=== PATIENT | female | born 1950 | race Caucasian/White ===

== ENCOUNTER 2016-08-01 19:09 | Observation (INO) ==
[2016-08-01] MEDS ORDERED: Ondansetron 4 MG/2 ML VIAL IVP PRN (22:15)
[2016-08-01] MEDS ORDERED: *HR* Morphine 2 MG/ML SYRINGE IVP PRN (22:22)
[2016-08-01] MEDS: 0.9 % Sodium Chloride 1,000 ML IVC SCH (22:59)
[2016-08-01] MEDS: Pantoprazole 40 MG VIAL IVP SCH (22:59)
[2016-08-01] MEDS: MetroNIDAZOLE 500 MG/100 ML 500 MG/100 ML BAG IVPB SCH (23:00)
[2016-08-02 05:13] LABS: Basophils # 0.1 K/mcL (0.0-0.2); Basophils % 0.8 %; Eosinophils # 0.2 K/mcL (0.0-0.6); Eosinophils % 2.4 %; Hematocrit 36.2 % (35.3-44.9); Hemoglobin 12.1 g/dL (11.5-15.4); Immature Granulocytes % 0.2 % (0-4); Lymphocytes # 1.1 K/mcL (0.6-4.6); Lymphocytes % 17.7 %; Mean Corpuscular HGB Conc 33.4 g/dL (31.6-35.5); Mean Corpuscular Hemoglobin 28.8 pg (28.0-33.3); Mean Corpuscular Volume 86.2 fL (83.0-100.0); Mean Platelet Volume 10.2 fL (9.4-12.4); Monocytes # 0.8 K/mcL (0.0-1.3); Monocytes % 13.2 %; Neutrophils # 4.1 K/mcL (1.6-8.9); Platelet Count 230 K/mcL (140-400); Red Cell Distribution Width 13.2 % (11.5-14.5); Segmented Neutrophils % 65.7 %
[2016-08-02 05:24] LABS: Magnesium 1.8 mg/dL (1.6-2.6); Phosphorous 3.4 mg/dL (2.3-4.7)
[2016-08-02 05:25] LABS: BUN/Creatinine Ratio 9 (6-26); Blood Urea Nitrogen 6 mg/dL (7-20); Calcium 8.8 mg/dL (8.6-10.8); Carbon Dioxide 26 mEq/L (19-29); Chloride 107 mEq/L (98-109); Glucose 93 mg/dL (70-99); Osmolality,Calculated 287 (280-300); Potassium 3.8 mEq/L (3.5-4.5); Sodium 140 mEq/L (136-145); eGFR For African Americans > 60 (> 60); eGFR For Non-African Americans > 60 (> 60)
[2016-08-02] MEDS: 0.9 % Sodium Chloride 1,000 ML IVC SCH ×2 (08:50→21:06)
[2016-08-02] MEDS: MetroNIDAZOLE 500 MG/100 ML 500 MG/100 ML BAG IVPB SCH ×2 (08:50→15:58)
[2016-08-02] MEDS: Pantoprazole 40 MG VIAL IVP SCH (08:51)
[2016-08-02] MEDS ORDERED: *HR* Promethazine 25 MG/ML VIAL IVP PRN (13:09)
[2016-08-02] MEDS ORDERED: Naloxone 0.4 MG/ML INJ IVP PRN (13:09)
[2016-08-02] MEDS ORDERED: *HR* Metoprolol 5 MG/5 ML VIAL IVP PRN (13:09)
[2016-08-02] MEDS ORDERED: Ondansetron 4 MG/2 ML VIAL IVP PRN (13:09)
[2016-08-02] MEDS: Ibuprofen 400 MG TABLET PO PRN ×2 (13:29→19:30)
[2016-08-02] MEDS: ALPRAZolam 0.25 MG TABLET PO PRN ×2 (13:30→19:31)
--- NOTE | 2016-08-02 14:45 | General Surg History&Physical ---
<Bell Keane - Last Filed: 08/02/16 15:12> Date of Encounter: 08/02/16 Time of Encounter: 14:27 Assessment and Plan (1) Diverticulitis Current Visit: No Status: Acute The assessment and plan as outlined above was discussed with the patient and/or family members who expressed understanding and agreement. All questions were answered. NPO except medications IVF IV cipro and flagyl pain control supportive care plan for f/u CT to monitor abscess Qualifiers: Diverticulitis site: large intestine Diverticulitis bleeding: without bleeding Diverticulitis complication: with abscess Qualified Code(s): K57.20 - Diverticulitis of large intestine with perforation and abscess without bleeding (2) DVT prophylaxis Current Visit: Yes Status: Acute heparin SQ 5,000 units BID History of Present Illness Chief complaint: diverticulitis HPI: Ms. Yang is a 65 year old female transferred from [place] [facility] for diverticulitis. She went to the ER for LLQ abdominal pain. The pain was a cramping pain that was made worse with eating and bowel movements. Denies fevers , chills, dysuria, urgency, emesis. Admits to nausea. Colonoscopy 1 yr prior showed diverticulosis. CT shows severe acute diverticulitis of the sigmoid colon with extensive wall thickening and pericolonic inflammatory changes. Focal fluid collection in the wall of the sigmoid colon [id number] mm in size likely representing an intramural abscess of the sigmoid colon. Past Med Surg Social Fam HX - Past Medical History Medical history: cancer, COPD, hyperlipidemia, migraine Psychiatric history: anxiety - Past Surgical History Surgical History: cancer surgery, other - Social History Smoking Status: Former smoker Smokeless Tobacco Status: No Alcohol use: none Drug use: none Occupational status: employed Activity Level: Independent ambulation - Family History Brother Hx Family Endocrine Disorder: (dm) Medications and Allergies Alprazolam [Xanax 0.25 MG Tablet] 0.25 mg PO TID PRN 08/01/16 [History] Aspirin [Lo-Dose Aspirin EC] 81 mg PO DAILY 08/01/16 [History] Montelukast [Singulair] 10 mg PO HS 08/01/16 [History] Simvastatin [Zocor] 20 mg PO HS 08/01/16 [History] Allergies Sulfa (Sulfonamide Antibiotics) Allergy (Verified 06/01/15 08:03) Anaphylaxis codeine Adverse Reaction (Verified 06/01/15 08:03) Nausea Review of Systems All systems PM: A 10-system review of systems was performed and is negative for pertinent findings except as documented above in the HPI. - Constitutional headache(s), no chills, no fever(s) - Cardiovascular no chest pain - Respiratory no dyspnea - Gastrointestinal abdominal pain, cramping, diarrhea, no constipation, no vomiting - Genitourinary Genitourinary: no dysuria, no urinary frequency, no urinary hesitancy, no urinary urgency - Musculoskeletal no arthralgias, no myalgias - Integumentary no rash General Surgery Exam Initial Vital Signs Temp Pulse Resp BP Pulse Ox 98.0 F 71 18 134/78 96 08/01/16 21:30 08/01/16 21:30 08/01/16 21:30 08/01/16 21:30 08/01/16 21:30 - General physical appearance well developed, well nourished, no distress - Eyes normal ocular movement - ENT normal mucosa, atraumatic, normocephalic - Neck trachea midline - Respiratory normal respiratory effort, clear to auscultation - Cardiovascular Cardiovascular exam: Present: RRR - Abdomen Abdomen general surgery: Present: bowel sounds present, soft Abdominal Tenderness: Present: LLQ (mild) - Integumentary Integumentary general surgery: Present: warm and dry - Neurologic Present: CN 2-12 grossly intact - Psychiatric Psychiatric general surgery: Present: A&Ox3, speech is normal, memory intact Results - Labs 08/02/16 04:03 08/02/16 04:03 Abnormal lab results BUN 6 mg/dL (7-20) L 08/02/16 04:03 POC Glucose 101 (58-89) H 08/02/16 12:05 Diabetes panel 08/02/16 Range/Units 04:03 Sodium 140 (136-145) mEq/L Potassium 3.8 (3.5-4.5) mEq/L Chloride 107 (98-109) mEq/L Carbon Dioxide 26 (19-29) mEq/L BUN 6 L (7-20) mg/dL Creatinine 0.66 (0.57-1.11) mg/dL Glucose 93 (70-99) mg/dL Calcium 8.8 (8.6-10.8) mg/dL Calcium panel 08/02/16 08/02/16 Range/Units 04:03 04:03 Calcium 8.8 (8.6-10.8) mg/dL Phosphorus 3.4 (2.3-4.7) mg/dL Pituitary panel 08/02/16 Range/Units 04:03 Sodium 140 (136-145) mEq/L Potassium 3.8 (3.5-4.5) mEq/L Chloride 107 (98-109) mEq/L Carbon Dioxide 26 (19-29) mEq/L BUN 6 L (7-20) mg/dL Creatinine 0.66 (0.57-1.11) mg/dL Glucose 93 (70-99) mg/dL Calcium 8.8 (8.6-10.8) mg/dL Adrenal panel 08/02/16 Range/Units 04:03 Sodium 140 (136-145) mEq/L Potassium 3.8 (3.5-4.5) mEq/L Chloride 107 (98-109) mEq/L Carbon Dioxide 26 (19-29) mEq/L BUN 6 L (7-20) mg/dL Creatinine 0.66 (0.57-1.11) mg/dL Glucose 93 (70-99) mg/dL Calcium 8.8 (8.6-10.8) mg/dL All other labs normal. <Brittani Allen - Last Filed: 08/03/16 13:26> Date of Encounter: 08/02/16 Time of Encounter: 16:00 Assessment and Plan (1) DVT prophylaxis Current Visit: Yes Status: Acute The assessment and plan as outlined above was discussed with the patient and/or family members who expressed understanding and agreement. All questions were answered. (2) Diverticulitis Current Visit: No Status: Acute The assessment and plan as outlined above was discussed with the patient and/or family members who expressed understanding and agreement. All questions were answered. conservative therapy: npo, serial abdominal exams, prn pain control, IV abx follow labs Qualifiers: Diverticulitis site: large intestine Diverticulitis bleeding: without bleeding Diverticulitis complication: with abscess Qualified Code(s): K57.20 - Diverticulitis of large intestine with perforation and abscess without bleeding (3) Hyperlipidemia Current Visit: Yes Status: Acute The assessment and plan as outlined above was discussed with the patient and/or family members who expressed understanding and agreement. All questions were answered. ok to continue home meds Qualifiers: Hyperlipidemia type: unspecified Qualified Code(s): E78.5 - Hyperlipidemia , unspecified History of Present Illness HPI: Ms. Yang is a 65 year old female who has had about 5 epiisodes over the last 8 months of LLQ pain. She has never been treated for diverticulitis previously as inpatient or outpatient. She episodes of pain are increasing in frequency. THis saturday she began having sharp LLQ pain without radiation that over then next few days became "excruciating". She presented to [facility] and a CT scan showed severe sigmoid diverticulitis with an intramural abscess. Her last colonosocpy was within the last year and showed diverticulosis. She is still having flatus and had a bm yesterday. No melena or hematochezia. No dysuria Past Med Surg Social Fam HX - Past Medical History Source: patient Review of Systems All systems PM: reviewed and no additional remarkable complaints except as stated All systems PM: A 10-system review of systems was performed and is negative for pertinent findings except as documented above in the HPI. General Surgery Exam Initial Vital Signs Temp Pulse Resp BP Pulse Ox 98.0 F 71 18 134/78 96 08/01/16 21:30 08/01/16 21:30 08/01/16 21:30 08/01/16 21:30 08/01/16 21:30 - General physical appearance well developed, well nourished, no distress, moderate pain - Eyes PERRL, normal ocular movement - ENT normal mucosa, atraumatic, normocephalic - Neck trachea midline - Respiratory normal expansion, clear to auscultation - Cardiovascular Cardiovascular exam: Present: RRR, no murmurs/rubs/gallops - Abdomen Abdomen general surgery: Present: bowel sounds present, soft, tender. Absent: distended, guarding, rebound Abdominal Tenderness: Present: LLQ - Integumentary Integumentary general surgery: Present: warm and dry, no abnormal pigmentation - Neurologic Present: CN 2-12 grossly intact - Musculoskeletal Present: normal posture - Psychiatric Psychiatric general surgery: Present: A&Ox3, speech is normal Results - Labs 08/03/16 04:14 08/03/16 04:14 Abnormal lab results BUN 6 mg/dL (7-20) L 08/02/16 04:03 POC Glucose 101 (58-89) H 08/02/16 12:05 Diabetes panel 08/02/16 Range/Units 04:03 Sodium 140 (136-145) mEq/L Potassium 3.8 (3.5-4.5) mEq/L Chloride 107 (98-109) mEq/L Carbon Dioxide 26 (19-29) mEq/L BUN 6 L (7-20) mg/dL Creatinine 0.66 (0.57-1.11) mg/dL Glucose 93 (70-99) mg/dL Calcium 8.8 (8.6-10.8) mg/dL Calcium panel 08/02/16 08/02/16 Range/Units 04:03 04:03 Calcium 8.8 (8.6-10.8) mg/dL Phosphorus 3.4 (2.3-4.7) mg/dL Pituitary panel 08/02/16 Range/Units 04:03 Sodium 140 (136-145) mEq/L Potassium 3.8 (3.5-4.5) mEq/L Chloride 107 (98-109) mEq/L Carbon Dioxide 26 (19-29) mEq/L BUN 6 L (7-20) mg/dL Creatinine 0.66 (0.57-1.11) mg/dL Glucose 93 (70-99) mg/dL Calcium 8.8 (8.6-10.8) mg/dL Adrenal panel 08/02/16 Range/Units 04:03 Sodium 140 (136-145) mEq/L Potassium 3.8 (3.5-4.5) mEq/L Chloride 107 (98-109) mEq/L Carbon Dioxide 26 (19-29) mEq/L BUN 6 L (7-20) mg/dL Creatinine 0.66 (0.57-1.11) mg/dL Glucose 93 (70-99) mg/dL Calcium 8.8 (8.6-10.8) mg/dL All other labs normal. - Imaging CT scan - abdomen: report reviewed, image reviewed CT scan - pelvis: report reviewed, image reviewed - Attending Attestation I examined this patient and my medical decision-making was reviewed with the HIGH SCHOOL ACADEMIC COACH/PA/Advanced Practice Nurse/Resident Physician. I agree with the documented findings, disposition and treatment plan as described except to the extent set forth below.
[2016-08-02] MEDS ORDERED: *HR* Heparin 5,000 UNIT/ML VIAL ONE (15:53)
[2016-08-02] MEDS: *HR* Heparin 5,000 UNIT/ML VIAL SQ SCH (16:00)
[2016-08-03 05:16] LABS: Basophils % 0.8 %; Eosinophils # 0.3 K/mcL (0.0-0.6); Eosinophils % 5.3 %; Hematocrit 35.8 % (35.3-44.9); Hemoglobin 11.5 g/dL (11.5-15.4); Immature Granulocytes % 0.2 % (0-4); Lymphocytes # 1.1 K/mcL (0.6-4.6); Lymphocytes % 21.8 %; Mean Corpuscular HGB Conc 32.1 g/dL (31.6-35.5); Mean Corpuscular Hemoglobin 28.5 pg (28.0-33.3); Mean Corpuscular Volume 88.8 fL (83.0-100.0); Mean Platelet Volume 10.2 fL (9.4-12.4); Monocytes # 0.6 K/mcL (0.0-1.3); Monocytes % 12.2 %; Platelet Count 223 K/mcL (140-400); Red Blood Count 4.03 M/mcL (3.82-4.97); Red Cell Distribution Width 13.2 % (11.5-14.5); Segmented Neutrophils % 59.7 %
[2016-08-03] MEDS: 0.9 % Sodium Chloride 1,000 ML IVC SCH ×2 (05:23→16:20)
[2016-08-03] MEDS: *HR* Heparin 5,000 UNIT/ML VIAL SQ SCH ×2 (05:27→17:52)
[2016-08-03 05:45] LABS: BUN/Creatinine Ratio 10 (6-26); Blood Urea Nitrogen 7 mg/dL (7-20); Calcium 8.4 mg/dL (8.6-10.8); Carbon Dioxide 24 mEq/L (19-29); Chloride 110 mEq/L (98-109); Glucose 91 mg/dL (70-99); Magnesium 2.1 mg/dL (1.6-2.6); Osmolality,Calculated 288 (280-300); Phosphorous 3.1 mg/dL (2.3-4.7); Potassium 4.3 mEq/L (3.5-4.5); Sodium 140 mEq/L (136-145); eGFR For African Americans > 60 (> 60); eGFR For Non-African Americans > 60 (> 60)
[2016-08-03] MEDS: Pantoprazole 40 MG VIAL IVP SCH (09:29)
[2016-08-03] MEDS: ALPRAZolam 0.25 MG TABLET PO PRN (11:08)
--- NOTE | 2016-08-03 15:19 | General Surgery Progress Note ---
<Rashida Rose Dave - Last Filed: 08/03/16 15:16> Date of Encounter: 08/03/16 Time of Encounter: 12:00 - Assessment and Plan (1) Diverticulitis Current Visit: No Status: Acute Patient symptoms have improved with conservative therapy. Advance to low residue diet [employer] consult for low residue diet IV antibiotics- transition to PO cipro and flagyl likely in the next 24 hours Supportive care saline lock IV fluid Qualifiers: Diverticulitis site: large intestine Diverticulitis bleeding: without bleeding Diverticulitis complication: with abscess Qualified Code(s): K57.20 - Diverticulitis of large intestine with perforation and abscess without bleeding (2) DVT prophylaxis Current Visit: Yes Status: Acute Continue heparin 5,000 units SQ twice daily for DVT prophylaxis Subjective Patient reports: no new complaints, feels better, still having pain, pain is less, tolerating liquids well, voiding w/o difficulty, flatus, afebrile Objective Vital Signs - Last 8 Hours Temp Pulse Resp BP Pulse Ox 08/03/16 11:20 98.0 F 71 17 160/87 97 08/03/16 08:00 98.3 F 61 17 115/74 97 Intake and Output 08/02/16 08/03/16 08/03/16 23:59 07:59 15:59 Intake Total 1300 / 1300 1200 / 1200 1240 / 1240 Output Total 900 / 900 450 / 450 1200 / 1200 Balance 400 / 400 750 / 750 40 / 40 Intake: IV Fluids 1300 / 1300 1200 / 1200 0.9 % Sodium Chloride 1, 1000 / 1000 1000 / 1000 000 ML @ 120 mls/hr IVC . Q8H20M [facility] Rx#:[id number] Cipro 400 MG/200 ML 400 200 / 200 200 / 200 mg In 200 ml @ 200 mls/hr IVPB Q12HR [facility] Rx#: [id number] Flagyl 500 MG/100 ML 500 100 / 100 mg In 100 ml @ 100 mls/hr IVPB Q8HR [facility] Rx#: [id number] Oral 0 / 0 0 / 0 1240 / 1240 Output: Urine 900 / 900 450 / 450 1200 / 1200 Other: Weight 67.6 kg Patient Weight 08/03/16 23:59 Weight 67.6 kg - General physical appearance well developed, well nourished, no distress - Eyes normal ocular movement - ENT normal mucosa, atraumatic, normocephalic - Neck Neck exam: trachea midline - Respiratory normal respiratory effort, clear to auscultation - Cardiovascular Cardiovascular exam: Present: RRR - Abdomen Abdomen: Present: bowel sounds present, soft, tender (mild, significantly improved) - Integumentary no rash, no growths, no abnormal pigmentation - Neurologic CN 2-12 grossly intact - Musculoskeletal normal gait, normal posture - Psychiatric oriented to time, oriented to person, oriented to place, speech is normal, memory intact - Labs 08/03/16 04:14 08/03/16 04:14 Diabetes panel 08/03/16 Range/Units 04:14 Sodium 140 (136-145) mEq/L Potassium 4.3 (3.5-4.5) mEq/L Chloride 110 H (98-109) mEq/L Carbon Dioxide 24 (19-29) mEq/L BUN 7 (7-20) mg/dL Creatinine 0.67 (0.57-1.11) mg/dL Glucose 91 (70-99) mg/dL Calcium 8.4 L (8.6-10.8) mg/dL Calcium panel 08/03/16 Range/Units 04:14 Calcium 8.4 L (8.6-10.8) mg/dL Phosphorus 3.1 (2.3-4.7) mg/dL Pituitary panel 08/03/16 Range/Units 04:14 Sodium 140 (136-145) mEq/L Potassium 4.3 (3.5-4.5) mEq/L Chloride 110 H (98-109) mEq/L Carbon Dioxide 24 (19-29) mEq/L BUN 7 (7-20) mg/dL Creatinine 0.67 (0.57-1.11) mg/dL Glucose 91 (70-99) mg/dL Calcium 8.4 L (8.6-10.8) mg/dL Adrenal panel 08/03/16 Range/Units 04:14 Sodium 140 (136-145) mEq/L Potassium 4.3 (3.5-4.5) mEq/L Chloride 110 H (98-109) mEq/L Carbon Dioxide 24 (19-29) mEq/L BUN 7 (7-20) mg/dL Creatinine 0.67 (0.57-1.11) mg/dL Glucose 91 (70-99) mg/dL Calcium 8.4 L (8.6-10.8) mg/dL Consult Discharge Plan - Plan Referrals: Rhonda Soliman MD [Primary Care Provider] - 08/09/16 4:15 pm Brittani Allen MD [Partnered Physician] - 08/15/16 1:40 pm (hospital f/u) Prescriptions: Ciprofloxacin [Cipro] 500 mg PO BID #20 tablet MetroNIDAZOLE [Flagyl] 500 mg PO TID #30 tablet - Attending Attestation I examined this patient and my medical decision-making was reviewed with the PHYSICAL THER/PA/Advanced Practice Nurse/Resident Physician. I agree with the documented findings, disposition and treatment plan as described except to the extent set forth below. <Brittani Allen - Last Filed: 08/03/16 18:14> Date of Encounter: 08/03/16 - Assessment and Plan (1) DVT prophylaxis Current Visit: Yes Status: Acute (2) Diverticulitis Current Visit: No Status: Acute will plan followup ct in 1 week to ensure intramural abscess resolved Qualifiers: Diverticulitis site: large intestine Diverticulitis bleeding: without bleeding Diverticulitis complication: with abscess Qualified Code(s): K57.20 - Diverticulitis of large intestine with perforation and abscess without bleeding (3) Hyperlipidemia Current Visit: Yes Status: Acute Qualifiers: Hyperlipidemia type: unspecified Qualified Code(s): E78.5 - Hyperlipidemia , unspecified Subjective Patient reports: feels better, pain is less, tolerating liquids well, voiding w/ o difficulty, flatus Objective Vital Signs - Last 8 Hours Temp Pulse Resp BP Pulse Ox 08/03/16 15:13 98.1 F 73 16 143/84 97 08/03/16 11:20 98.0 F 71 17 160/87 97 Intake and Output 08/03/16 08/03/16 08/03/16 07:59 15:59 23:59 Intake Total 1200 / 1200 2240 / 2240 Output Total 450 / 450 1900 / 1900 Balance 750 / 750 340 / 340 Intake: IV Fluids 1200 / 1200 1000 / 1000 0.9 % Sodium Chloride 1, 1000 / 1000 1000 / 1000 000 ML @ 120 mls/hr IVC . Q8H20M [facility] Rx#:[id number] Cipro 400 MG/200 ML 400 200 / 200 mg In 200 ml @ 200 mls/hr IVPB Q12HR [facility] Rx#: [id number] Oral 0 / 0 1240 / 1240 Output: Urine 450 / 450 1900 / 1900 Other: Weight 67.6 kg Patient Weight 08/03/16 23:59 Weight 67.6 kg - General physical appearance well developed, well nourished, no pain - Eyes PERRL, normal ocular movement - ENT atraumatic, normocephalic - Neck Neck exam: trachea midline - Respiratory clear to auscultation - Cardiovascular Cardiovascular exam: Present: RRR - Abdomen Abdomen: Present: bowel sounds present, soft, tender - Integumentary no rash, no growths - Musculoskeletal normal gait, normal posture - Psychiatric oriented to time, oriented to person, memory intact - Labs 08/03/16 04:14 08/03/16 04:14 Diabetes panel 08/03/16 Range/Units 04:14 Sodium 140 (136-145) mEq/L Potassium 4.3 (3.5-4.5) mEq/L Chloride 110 H (98-109) mEq/L Carbon Dioxide 24 (19-29) mEq/L BUN 7 (7-20) mg/dL Creatinine 0.67 (0.57-1.11) mg/dL Glucose 91 (70-99) mg/dL Calcium 8.4 L (8.6-10.8) mg/dL Calcium panel 08/03/16 Range/Units 04:14 Calcium 8.4 L (8.6-10.8) mg/dL Phosphorus 3.1 (2.3-4.7) mg/dL Pituitary panel 08/03/16 Range/Units 04:14 Sodium 140 (136-145) mEq/L Potassium 4.3 (3.5-4.5) mEq/L Chloride 110 H (98-109) mEq/L Carbon Dioxide 24 (19-29) mEq/L BUN 7 (7-20) mg/dL Creatinine 0.67 (0.57-1.11) mg/dL Glucose 91 (70-99) mg/dL Calcium 8.4 L (8.6-10.8) mg/dL Adrenal panel 08/03/16 Range/Units 04:14 Sodium 140 (136-145) mEq/L Potassium 4.3 (3.5-4.5) mEq/L Chloride 110 H (98-109) mEq/L Carbon Dioxide 24 (19-29) mEq/L BUN 7 (7-20) mg/dL Creatinine 0.67 (0.57-1.11) mg/dL Glucose 91 (70-99) mg/dL Calcium 8.4 L (8.6-10.8) mg/dL
--- NOTE | 2016-08-03 15:23 | Discharge Summary ---
<Rashida Rose - Last Filed: 08/03/16 15:20> Date of Encounter: 08/03/16 Time of Encounter: 15:20 - Discharge Diagnosis (1) Diverticulitis Priority: Primary Status: Acute Qualifiers: Diverticulitis site: large intestine Diverticulitis bleeding: without bleeding Diverticulitis complication: with abscess Qualified Code(s): K57.20 - Diverticulitis of large intestine with perforation and abscess without bleeding (2) DVT prophylaxis Priority: Secondary Status: Acute - Discharge Medications Prescriptions: Ciprofloxacin [Cipro] 500 mg PO BID #20 tablet MetroNIDAZOLE [Flagyl] 500 mg PO TID #30 tablet Home Medications: Alprazolam [Xanax 0.25 MG Tablet] 0.25 mg PO TID PRN 08/01/16 [History] Aspirin [Lo-Dose Aspirin EC] 81 mg PO DAILY 08/01/16 [History] Montelukast [Singulair] 10 mg PO HS 08/01/16 [History] Simvastatin [Zocor] 20 mg PO HS 08/01/16 [History] Ciprofloxacin [Cipro] 500 mg PO BID #20 tablet 08/03/16 [Rx] MetroNIDAZOLE [Flagyl] 500 mg PO TID #30 tablet 08/03/16 [Rx] Allergies/Adverse Reactions: Allergies Sulfa (Sulfonamide Antibiotics) Allergy (Verified 06/01/15 08:03) Anaphylaxis codeine Adverse Reaction (Verified 06/01/15 08:03) Nausea General Surgery Exam Initial Vital Signs Temp Pulse Resp BP Pulse Ox 98.0 F 71 18 134/78 96 08/01/16 21:30 08/01/16 21:30 08/01/16 21:30 08/01/16 21:30 08/01/16 21:30 Date of admission: 08/01/16 20:40 Primary care physician: Rhonda Soliman, Consults: 08/03/16 12:38 consult to vegetable washer [Consult to Nutrition] [CONS] Routine Comment: low fiber diet Consulting Provider: NUTRITION Reason for Dietary Consult: Diet Education Discharging clinician: Max Padilla ([facility]) Anticipated date of discharge: 08/04/16 - Patient Status Disposition: Home, Self-Care Condition: Good Functional capacity at discharge: independent ambulation Overall status at discharge: patient is progressing back to baseline - Discharge Instructions Instructions: Diverticulitis (DC) Follow Up With: Rhonda Soliman MD [Primary Care Provider] - 08/09/16 4:15 pm Brittani Allen MD [Partnered Physician] - 08/15/16 1:40 pm (hospital f/u) Forms: Work/School Release Additional Instructions: Follow-up appointments: If there is not an appointment listed below, please call your physician and schedule a follow-up appointment. If you have congestive heart failure and your symptoms return, make an appointment with your physician. Symptoms: If your condition changes or you experience any of the following symptoms, notify your physician immediately: Unusual or worsening pain, fever, persistent nausea and vomiting, bleeding, increase in swelling (especially in your legs), sudden weight gain, extreme dizziness, chest pain, increased drainage or redness from a wound or incision. Go to the emergency department if you experience a problem with breathing. Weights: If you have a history of swelling or shortness of breath, weigh yourself daily and notify your physician if you have a weight gain of two or more pounds in one day or 5 or more pounds in a week. If you experience any of the warning signs for stroke: Sudden numbness or weakness of the face, arm or leg; especially on one side of the body, sudden confusion, trouble speaking or understanding, sudden trouble seeing in one or both eyes, sudden trouble walking, dizziness, loss of balance or coordination, sudden sever headache with no cause; Call 911 or go to the emergency room. Stroke is a medical emergency. Some risk factors for stroke: Age, cigarette smoking, diabetes, excessive alcohol consumption, family history , high blood pressure, overweight, physical inactivity, prior stroke, heart attack, diagnosis of carotid artery stenosis or other artery disease. If you smoke, STOP: Smoking or tobacco use significantly increases your risk of heart and lung disease. Your chance of disease greatly increases if you continue to smoke. For more information, call the [employer] tobacco quit line for smoking cessation QUIT-NOW ( ) - Diet and Activity Activity: increase activity as tolerated Diet: other (Low fiber diet for the next 6-8 weeks) - Hospital Course Hospital course: Ms. Yang is a 65 year old female presented to the hospital with complaints of abdominal pain. She had a CT complete which showed significant diverticulitis with intramural abscess. The patient was admitted to the hospital and treated with conservative therapy including bowel rest and IV antibiotics. Her symptoms have significantly improved. She is tolerating clear liquids and she will be advanced to low fiber diet. We will begin discharge planning to home and transition to 10 days or PO cipro and flagyl. The patient will have a repeat CT scan in 1 week which will be set up through my office and is to be completed in [place]. F/U with Dr. Allen 08/15/16. - Time Spent with Patient Total time spent providing and/or coordinating discharge services: Less than 30 minutes Labs on day of discharge: Labs from last 24 hours 08/03/16 08/03/16 04:14 04:14 WBC 5.1 RBC 4.03 Hgb 11.5 Hct 35.8 MCV 88.8 MCH 28.5 MCHC 32.1 RDW 13.2 Plt Count 223 MPV 10.2 Immature Gran % 0.2 Seg Neutrophils % 59.7 Lymphocytes % 21.8 Monocytes % 12.2 Eosinophils % 5.3 Basophils % 0.8 Neutrophils # 3.0 Lymphocytes # 1.1 Monocytes # 0.6 Eosinophils # 0.3 Basophils # 0.0 Sodium 140 Potassium 4.3 Chloride 110 H Carbon Dioxide 24 BUN 7 Creatinine 0.67 Est GFR ( Amer) > 60 Est GFR (Non-Af Amer) > 60 BUN/Creatinine Ratio 10 Glucose 91 Calculated Osmolality 288 Calcium 8.4 L Phosphorus 3.1 Magnesium 2.1 - Attending Attestation I examined this patient and my medical decision-making was reviewed with the COMMERCIAL UNDERWRITER/PA/Advanced Practice Nurse/Resident Physician. I agree with the documented findings, disposition and treatment plan as described except to the extent set forth below. <Bell Keane - Last Filed: 08/04/16 11:43> Date of Encounter: 08/04/16 Time of Encounter: 11:43 - Discharge Diagnosis (1) Diverticulitis Priority: Primary Status: Acute Qualifiers: Diverticulitis site: large intestine Diverticulitis bleeding: without bleeding Diverticulitis complication: with abscess Qualified Code(s): K57.20 - Diverticulitis of large intestine with perforation and abscess without bleeding (2) DVT prophylaxis Priority: Secondary Status: Acute General Surgery Exam Initial Vital Signs Temp Pulse Resp BP Pulse Ox 98.0 F 71 18 134/78 96 08/01/16 21:30 08/01/16 21:30 08/01/16 21:30 08/01/16 21:30 08/01/16 21:30 - General physical appearance well developed, well nourished, no distress - Eyes normal ocular movement - ENT normal mucosa, atraumatic, normocephalic - Neck trachea midline - Respiratory normal respiratory effort, clear to auscultation - Cardiovascular Cardiovascular exam: Present: RRR - Abdomen Abdomen general surgery: Present: bowel sounds present, soft, non tender - Integumentary Integumentary general surgery: Present: warm and dry, no abnormal pigmentation - Neurologic Present: CN 2-12 grossly intact - Musculoskeletal Present: normal gait, normal posture - Psychiatric Psychiatric general surgery: Present: A&Ox3, speech is normal, memory intact Date of admission: 08/01/16 20:40 Primary care physician: Rhonda Soliman, Consults: 08/03/16 12:38 consult to vegetable washer [Consult to Nutrition] [CONS] Routine Comment: low fiber diet Consulting Provider: NUTRITION Reason for Dietary Consult: Diet Education - Patient Status Functional capacity at discharge: independent ambulation Overall status at discharge: patient is progressing back to baseline - Diet and Activity Activity: increase activity as tolerated - Time Spent with Patient Total time spent providing and/or coordinating discharge services: <Max Padilla - Last Filed: 08/05/16 12:26> Date of Encounter: 08/05/16 General Surgery Exam Initial Vital Signs Temp Pulse Resp BP Pulse Ox 98.0 F 71 18 134/78 96 08/01/16 21:30 08/01/16 21:30 08/01/16 21:30 08/01/16 21:30 08/01/16 21:30 Date of admission: 08/01/16 20:40 Primary care physician: Rhonda Soliman, Consults: 08/03/16 12:38 consult to vegetable washer [Consult to Nutrition] [CONS] Routine Comment: low fiber diet Consulting Provider: NUTRITION Reason for Dietary Consult: Diet Education - Hospital Course Hospital course: Ms. Yang is a 65 year old female - Time Spent with Patient Total time spent providing and/or coordinating discharge services: - Attending Attestation Max Padilla MD FACS
[2016-08-03] MEDS: Ibuprofen 400 MG TABLET PO PRN (16:20)
[2016-08-04] MEDS: 0.9 % Sodium Chloride 1,000 ML IVC SCH ×2 (01:21→02:17)
[2016-08-04] MEDS: *HR* Heparin 5,000 UNIT/ML VIAL SQ SCH (05:36)
[2016-08-04] MEDS: Pantoprazole 40 MG VIAL IVP SCH (10:09)
[2016-08-04 10:45] VITALS: BP 127/73
== END 2016-08-04 13:30 | disposition home or self-care (01) ==
LOC: 3ANU
PROVIDERS: ADMIT Surgery; ATTEND Surgery